=== PATIENT | male | born 1965 | race Caucasian/White ===

== ENCOUNTER → 2016-11-25 | Outpatient (CLI) | payer OTHER ==
[~2016-11-25] MED LIST: ZOLPIDEM 5 MG TABLET. PO ONE
--- NOTE | 2016-11-27 09:55 | SLEEP ---
DATE OF STUDY: 11/25/2016 REFERRING PERSON: Amanda Head. The patient is 51 years old who weighs 224 pounds with a BMI of 30. The patient's [place] score was 8. Sleep study was performed at [facility]. During the night study, the patient spent 427 minutes in bed and slept for 296 minutes with a low sleep efficiency of 69%. Sleep latency was 52 minutes with a REM latency of 260 minutes. Overall, sleep architecture showed increased stage I and stage II sleep, reduced slow wave and reduced REM sleep. During the night study, the patient had 28 hypopneas, 10 obstructive, and 16 mixed apneas and no central apneas. The patient's apnea hypopnea index was 11 per hour, supine index 1 per hour and a REM index of 1 per hour. Review of nocturnal oximetry study revealed a mean oxygen saturation of 94% with the lowest of 84%. 3% of time oxygen saturation remained between 80% and 89%. EKG monitoring revealed normal sinus rhythm. No sustained arrhythmias were observed. Average heart rate was 65 beats per minute. PLMS were seen at index of 41 per hour and 6 per hour caused EEG arousals. Due to low AHI, the patient did not meet the split night criteria for CPAP initiation. IMPRESSION: 1. Mild sleep apnea-hypopnea syndrome with an AHI of 11 per hour. 2. Severe PLMS at an index of 41 per hour and 6 per hour caused EEG arousals. 3. No clinically significant nocturnal hypoxia. RECOMMENDATIONS: 1. The patient has mild sleep apnea, which can be treated with weight loss first. 2. If the patient's symptoms persist, then consider either an oral appliance as recommended by the dentist or trial of CPAP titration. 3. Avoid [employer] depressants. 4. Caution regarding driving until the patient's hypersomnia is resolved with the above recommendations. 5. PLMS can be further assessed for any symptoms of restless legs during the day and if present, it can be treated with dopaminergic agonist agents. MICHAEL WALLACE MD DR: CELIA/samantha JOB#: [id number] / [id number] ANDA [place]
== END | disposition home or self-care (01) ==
LOC: RT 18:30
PROVIDERS: ATTEND Internal Medicine Critical Care Medicine
DX: G47.33 Obstructive sleep apnea (adult) (pediatric) (principal)
CPT/HCPCS: 95810

== ENCOUNTER → 2017-05-06 | Outpatient (CLI) | payer OTHER ==
--- NOTE | 2017-05-07 14:27 | SLEEP ---
DATE OF STUDY: 05/06/2017 DATE OF SERVICE: 05/06/2017 ATTENDING PHYSICIAN: Dr. Nancy Dorado REFERRING PHYSICIAN: Dr. Lakhwinder Leon The patient is 51 years old who weighs 224 pounds with a BMI of 30. The patient's [place] score was 8. The patient had a previous sleep study which showed mild TWILA attaining AHI of 11 per hour. Due to persistent hypersomnia, CPAP titration study was scheduled by primary care physician. During the night study, the patient spent 398 minutes in bed and slept for 332 minutes with a sleep efficiency of 84%. Sleep latency was 8 minutes with a REM latency of 72 minutes. Overall, sleep architecture showed normal stage I and stage II sleep, normal slow wave and normal REM sleep. The patient was started on CPAP at a pressure of 7 cm water as he was unable to tolerate less than that. At the final therapeutic pressure of 9 cm of water, the patient slept for 170 minutes. The patient had supine as well as REM sleep. AHI was reduced to only 1 per hour and oxygen saturation remained above 92%. The patient used a medium-sized full-face mask. EKG monitoring revealed normal sinus rhythm. No sustained arrhythmias were observed. Average heart rate was 59 beats per minute. PLMS were seen at index of 1 per hour and none caused EEG arousals. IMPRESSION: 1. Sleep apnea diagnosed by previous sleep study. 2. No clinically significant PLMS. RECOMMENDATIONS: 1. CPAP at 9 cm water completely eliminated the patient's sleep apnea and should be used on a nightly basis. The patient used a medium-size full-face mask. 2. Follow up in 4-6 weeks to assess compliance with CPAP and to document clinical improvement. 3. Weight loss is strongly advised. 4. Avoid [employer] depressants. 5. Caution regarding driving until symptoms of sleep apnea resolved with the use of CPAP. MICHAEL WALLACE MD DR: CELIA/samantha JOB#: [id number] / [id number] NANCY Landers MD, JEFFREY PA-C
== END | disposition home or self-care (01) ==
LOC: RT 18:14
PROVIDERS: ATTEND Physician Assistant Medical
DX: G47.33 Obstructive sleep apnea (adult) (pediatric) (principal)
CPT/HCPCS: 95811